=== PATIENT | male | born 1995 | race Asian ===

== ENCOUNTER 2023-04-16 08:21 | Emergency (ER) | payer OTHER ==
[2023-04-16 08:34] VITALS: BP 127/67; O2SAT 97
--- NOTE | 2023-04-16 09:29 | ED Physician Documentation ---
PD HPI HEENT - Stated complaint Stated Complaint: LT EYE RASH PX - Chief complaint Chief Complaint: Heent - History obtained from History obtained from: Patient - Additional information Additional information: The pt comes to the ED with Cc of rash around his eyes and on his face. He has also had some redness and irritation of his R eye. 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 He recently had a URI, but is otherwise very healthy. No lesions elsewhere. No other complaints at this time. PD PAST MEDICAL HISTORY - Past Medical History Past Medical History: Yes Cardiovascular: None Respiratory: Asthma Neuro: None Endocrine/Autoimmune: None GI: None : None HEENT: None Psych: None Musculoskeletal: None Derm: None - Past Surgical History Past Surgical History: Yes - Present Medications Home Medications: Ambulatory Orders Medication Instructions Recorded Confirmed Acyclovir [Zovirax] 200 mg PO 5XD #25 cap 04/16/23 Gentamicin 0.3% Ophth Drops 1 drops OPTH BID #5 ml 04/16/23 [Garamycin] - Allergies Allergies/Adverse Reactions: Allergies Allergy/AdvReac Type Severity Reaction Status Date / Time No Known Drug Allergies Allergy Verified 04/16/23 08:25 - Social History Does the pt smoke?: No Smoking Status: Never smoker Does the pt drink ETOH?: Yes Does the pt have substance abuse?: No - Immunizations Immunizations are current?: Yes PD ED PE NORMAL - Vitals Vital signs reviewed: Yes - General General: Alert and oriented X 3, No acute distress, Well developed/nourished - HEENT HEENT: Atraumatic, PERRL, EOMI, Moist mucous membranes, Other (fluorscein exam negative. Mild injection R eye, no drainage. Clusters of scabbed lesions on R judaism and around L eyelids. Occasional tiny pustules vs vesicles. No lesions on nose.) - Respiratory Respiratory: No respiratory distress, Clear bilaterally - Abdomen Abdomen: Normal bowel sounds, Soft, Non tender, Non distended - Derm Derm: Warm and dry, Other (facial rash as above. No lesions elsewhere.) - Extremities Extremities: No deformity - Neuro Neuro: Alert and oriented X 3 - Psych Psych: Normal mood, Normal affect Results - Vitals Vitals: Oxygen O2 Source Room air - Labs Labs: Microbiology 04/16/23 09:35 Herpes Simplex Culture & Type - Final Skin - Rash PD Medical Decision Making - ED course Complexity details: considered differential, d/w patient ED course: I d/w pt that it is hard to tell if he has a viral outbreak or perhaps impetigo. The outbreak is fairly limited, and for now, I will place him on acyclovir and gentamicin ophthalmic drops for his conjunctivitis. We have discussed follow up and the usual indications for return. Departure - Departure Disposition: 01 Home, Self Care Clinical Impression: Herpes simplex Conjunctivitis Qualifiers: Conjunctivitis type: acute Acute conjunctivitis type: unspecified Laterality: bilateral Qualified Code(s): H10.33 - Unspecified acute conjunctivitis, bilateral Condition: Stable Instructions: ED Conjunctivitis Nonspecific, ED Shingles Prescriptions: Gentamicin 0.3% Ophth Drops [Garamycin] 1 drops OPTH BID #5 ml Acyclovir [Zovirax] 200 mg PO 5XD #25 cap Comments: The rash around your eyelids and judaism could be a mild herpes outbreak. It does not look distinctly bacterial and overall, the rash is mild and scabbing over. We have obtained a culture, but since the rash is dry and there is not much fluid to soak up on the culturette tip, this may not yield much in the way of results. As far as any concern over COVID, your symptoms are not consistent with COVID and a COVID test will not provide any helpful information at this point in time. The nerve branch that supplies the eyelids is separate from the one that supplies the "eyeball" itself. As we discussed, that nerve is the same as the one that supplies the tip of the nose. As such, a shingles outbreak that involves the eyelids generally is not a risk to the surface of the eye itself. You do not have any lesions on the tip of your nose and also, on dye exam there is no evidence of any involvement of the surface of your eye. As such, there is no cause for concern at this time regarding the eye itself. I have sent prescriptions for the antiviral medicine and the eyedrops to the [facility] pharmacy in [place]. Please pick this up this morning and start taking them right away. [place]. Please take the rest of the week off work to allow your rash to subside. Forms: PCP List, Activity restrictions Discharge Date/Time: 04/16/23 09:50
== END 2023-04-16 09:50 | disposition home or self-care (01) ==
LOC: ED 08:21
DX: B00.9 Herpesviral infection, unspecified (principal); H10.33 Unspecified acute conjunctivitis, bilateral
CPT/HCPCS: 87255; 99283

== ENCOUNTER 2023-09-02 19:15 | Emergency (ER) | payer OTHER ==
[2023-09-02 19:35] VITALS: BP 139/76; O2SAT 100
== END 2023-09-02 20:26 | disposition left against medical advice (07) ==
LOC: ED 19:15
DX: Z53.21 Procedure and treatment not carried out due to patient leaving prior to being seen by health care provider (principal); R41.0 Disorientation, unspecified
CPT/HCPCS: 80053; 83690; 83735; 85025